=== PATIENT | male | born 1955 | race Caucasian/White ===

== ENCOUNTER 2023-07-03 17:41 | Inpatient (IN) | payer OTHER ==
[~2023-07-03] VITALS: Ht 177.8 cm; Wt 50.8 kg
[~2023-07-03 17:41] MED LIST: CEPH-548 PO
[2023-07-03 17:43] VITALS: BP_SYST 109; PULSE 92; RESP 16; O2SAT 94
[2023-07-03 18:15] LABS: BASOPHILS # (AUTO) 0.1 K/uL (0.0-0.2); BASOPHILS % (AUTO) 0.9 % (0.0-2.0); EOSINOPHILS # (AUTO) 0.2 K/uL (0.0-0.4); EOSINOPHILS % (AUTO) 2.7 % (0.0-4.0); HEMATOCRIT 33.9 % (36-54); HEMOGLOBIN 10.9 g/dL (14.0-18.0); LYMPHOCYTES # (AUTO) 3.3 K/uL (1.0-5.5); MEAN CORPUSCULAR HEMOGLOBIN 29 pg (27-31); MEAN CORPUSCULAR HGB CONC 32 % (32-36); MEAN CORPUSCULAR VOLUME 90 fL (79.0-98.0); MONOCYTES # (AUTO) 0.5 K/uL (0.0-1.0); MONOCYTES % (AUTO) 6.9 % (1.7-9.3); NEUTROPHILS # (AUTO) 3.7 K/uL (1.8-7.7); NEUTROPHILS % (AUTO) 47.5 % (40.0-70.0); PLATELET COUNT (AUTO) 271 K/uL (130-430); RED BLOOD CELL COUNT(AUTO) 3.75 MIL/uL (4.2-6.2); RED CELL DISTRIBUTION WIDTH 14.6 % (9.0-15.0); WHITE BLOOD COUNT (AUTO) 7.9 K/uL (4.8-10.8)
[2023-07-03 18:29] LABS: INR 1.1 (0.80-1.20); PROTHROMBIN TIME 11.8 SECS (9.5-12.5)
[2023-07-03 18:30] LABS: ALBUMIN 3.1 g/dL (3.4-4.8); CALCIUM 8.6 mg/dL (8.4-11.0); CREATININE 0.7 mg/dL (0.55-1.30); POTASSIUM 5.1 mmol/L (3.5-5.1); TOTAL BILIRUBIN 0.4 mg/dL (0.0-1.0); TOTAL PROTEIN, SERUM 6.6 g/dL (6.4-8.3)
[2023-07-03 18:40] LABS: BILIRUBIN,DIRECT 0.1 mg/dL (0.0-0.3)
[2023-07-03 18:55] LABS: BILIRUBIN,URINE NEGATIVE (NEGATIVE); BLOOD, URINE 3+ (NEGATIVE); CLARITY/URINE CLEAR (CLEAR); COLOR,URINE YELLOW (YELLOW); GLUCOSE,URINE 3+ (NEGATIVE); KETONES,URINE NEGATIVE (NEGATIVE); LEUKOCYTE ESTERASE ,URINE 1+ (NEGATIVE); NITRITE, URINE POSITIVE (NEGATIVE); PROTEIN URINE NEGATIVE (NEGATIVE); UROBILINOGEN,URINE 0.2 (0.2-1.0)
[2023-07-03 19:12] LABS: BACTERIA,URINE MODERATE /HPF (None Seen); MUCUS,URINE None Seen /LPF (None Seen); RBC,URINE 0-3 /HPF (0-3)
[2023-07-03] MEDS: NACL 0.9% 1,000 ML IV SCH ×2 (20:08→22:28)
[2023-07-03] MEDS ORDERED: [UNRECOGNIZED DRUG - CODE] PO (20:12)
[2023-07-03] MEDS ORDERED: INSU100V10 SQ (20:12)
[2023-07-03] MEDS ORDERED: APIX5TAB PO (20:12)
[2023-07-03] MEDS ORDERED: FOLI0.8T2 PO (20:12)
[2023-07-03] MEDS ORDERED: FINA5TAB11 PO (20:12)
[2023-07-03] MEDS ORDERED: DONE5TAB3 PO (20:12)
[2023-07-03] MEDS ORDERED: SITA50TA3 PO (20:12)
[2023-07-03] MEDS ORDERED: METF1000 PO (20:12)
[2023-07-03] MEDS ORDERED: MAGN24002 PO (20:12)
[2023-07-03] MEDS ORDERED: ACET325T39 PO (20:12)
[2023-07-03] MEDS ORDERED: MIRT-147 PO (20:12)
[2023-07-03] MEDS ORDERED: ASPI-524 PO (20:12)
[2023-07-03] MEDS ORDERED: EMPA25TA PO (20:12)
[2023-07-03] MEDS ORDERED: DULR10 RC (20:12)
[2023-07-03] MEDS ORDERED: FERR-31 PO (20:12)
[2023-07-03] MEDS ORDERED: NEU100 PO (20:12)
[2023-07-03 21:19] VITALS: O2SAT 100
[2023-07-03 21:25] VITALS: BP_SYST 119; PULSE 72; RESP 16; TEMP 97.2
[2023-07-04] VITALS (7 sets, daily range): BP systolic 99–132; PULSE 83–92; RESP 16–18; TEMP 97.3–99.2; O2SAT 96–100
[2023-07-05] VITALS (7 sets, daily range): BP systolic 130–146; PULSE 78–89; RESP 16–18; TEMP 97.5–99.4; O2SAT 96–100
[2023-07-05] MEDS: INSULIN REGULAR, HUMAN 100 UNITS/ML, 3 ML VIAL (humuLIN R) SUBCUT PRN (11:55)
[2023-07-05] MEDS: PANTOPRAZOLE SODIUM 40 MG TAB PO ONE (16:21)
[2023-07-06 00:20] VITALS: BP_SYST 119; RESP 18; TEMP 97.3; O2SAT 100
[2023-07-06 07:58] VITALS: BP_SYST 127; PULSE 90; RESP 16; TEMP 98.3; O2SAT 99
[2023-07-06] MEDS: PANTOPRAZOLE SODIUM 40 MG TAB PO SCH (08:25)
[2023-07-06 11:16] VITALS: BP_SYST 119; PULSE 89; RESP 16; TEMP 98.9; O2SAT 99
[2023-07-06] MEDS ORDERED: D5W 1,000 ML IV PRN (11:45)
[2023-07-06] MEDS ORDERED: DEXTROSE 50%-WATER 50 ML DISP.SYRIN IVP PRN (11:45)
[2023-07-06] MEDS ORDERED: GLUCOSE (DEXTROSE) ORAL GEL -Adults PO PRN (11:45)
[2023-07-06] MEDS: SULFAMETHOXAZOLE/TRIMETHOPR DS 1 TABLET PO ONE (14:16)
[2023-07-06 15:21] VITALS: BP_SYST 148; PULSE 82; RESP 14; TEMP 98; O2SAT 99
[2023-07-06] MEDS: SULFAMETHOXAZOLE/TRIMETHOPR DS 1 TABLET PO SCH (21:00)
[2023-07-06 22:07] VITALS: BP_SYST 134; PULSE 90; RESP 18; TEMP 98.6; O2SAT 98
[2023-07-07 05:42] LABS: BASOPHILS # (AUTO) 0.1 K/uL (0.0-0.2); BASOPHILS % (AUTO) 0.7 % (0.0-2.0); EOSINOPHILS # (AUTO) 0.2 K/uL (0.0-0.4); HEMATOCRIT 33.6 % (36-54); LYMPHOCYTES # (AUTO) 3.3 K/uL (1.0-5.5); LYMPHOCYTES % (AUTO) 38.6 % (20.5-51.5); MEAN CORPUSCULAR HEMOGLOBIN 29 pg (27-31); MEAN CORPUSCULAR HGB CONC 33 % (32-36); MEAN CORPUSCULAR VOLUME 89 fL (79.0-98.0); MONOCYTES # (AUTO) 0.7 K/uL (0.0-1.0); NEUTROPHILS # (AUTO) 4.3 K/uL (1.8-7.7); NEUTROPHILS % (AUTO) 50.7 % (40.0-70.0); PLATELET COUNT (AUTO) 290 K/uL (130-430); RED BLOOD CELL COUNT(AUTO) 3.76 MIL/uL (4.2-6.2); RED CELL DISTRIBUTION WIDTH 14.7 % (9.0-15.0); WHITE BLOOD COUNT (AUTO) 8.5 K/uL (4.8-10.8)
[2023-07-07 06:05] LABS: CALCIUM 9.1 mg/dL (8.4-11.0); CREATININE 0.65 mg/dL (0.55-1.30); POTASSIUM 3.8 mmol/L (3.5-5.1)
[2023-07-07 08:00] VITALS: BP_SYST 117; PULSE 81; RESP 18; TEMP 97.9; O2SAT 99
[2023-07-07 10:02] VITALS: O2SAT 99
[2023-07-07 11:10] VITALS: BP_SYST 131; PULSE 108; RESP 17; TEMP 97.6; O2SAT 93
[2023-07-07] MEDS ORDERED: SULF1TAB48 PO (12:20)
[2023-07-07 14:05] VITALS: BP_SYST 122; PULSE 81; RESP 18; TEMP 98.7; O2SAT 99
[2023-07-07 15:01] VITALS: BP_SYST 121; PULSE 82; RESP 16; TEMP 98.8; O2SAT 100
== END 2023-07-07 19:50 | DRG 689 ==
LOC: SED 17:41 → SMU 19:21
PROVIDERS: ADMIT Internal Medicine; ATTEND Internal Medicine
DX: N30.81 Other cystitis with hematuria (principal); E43 Unspecified severe protein-calorie malnutrition; Z68.1 Body mass index [BMI] 19.9 or less, adult; E11.9 Type 2 diabetes mellitus without complications; F03.90 Unspecified dementia, unspecified severity, without behavioral disturbance, psychotic disturbance, mood disturbance, and anxiety; Z79.82 Long term (current) use of aspirin; Z79.899 Other long term (current) drug therapy; Z79.84 Long term (current) use of oral hypoglycemic drugs; Z79.4 Long term (current) use of insulin
CPT/HCPCS: 36415; 80048; 80076; 81000; 81001; 81015; 82150; 82948; 83690; 85025; 85610; 85730; 87040; 87081; 87086; 93005; 97110-GP; 97530-GP; 99285; J1815; J1956